=== PATIENT | female | born 1970 | race Caucasian/White ===

== ENCOUNTER → 2020-08-25 | Outpatient (CLI) | payer OTHER ==
[2020-08-25 12:58] LABS: HEMOGLOBIN 12.7 gm/dl (12.3-15.3); RED BLOOD COUNT 4.06 M/UL (4.00-5.10); WHITE BLOOD COUNT 5.5 K/UL (4.5-11.0)
[2020-08-25 13:44] LABS: BUN/CREATININE RATIO 21 (0-10)
== END ==
LOC: LAB 11:11
PROVIDERS: Colon & Rectal Surgery
DX: K64.4 Residual hemorrhoidal skin tags (principal); I49.5 Sick sinus syndrome
CPT/HCPCS: 36415; 80048; 85027; 93005

== ENCOUNTER → 2020-11-24 | Outpatient (CLI) | payer OTHER | LOC: NM 09:00 | DX: R11.0 Nausea (principal) | CPT/HCPCS: 78264; A9541 ==